=== PATIENT | male | born 1975 | race Two or more races ===

== ENCOUNTER 2025-04-04 07:45 | Emergency (ER) | payer BC ==
[2025-04-04] MEDS: Ketorolac 30 MG/ML SDV IVPUSH ONE (08:19)
[2025-04-04] MEDS: Ondansetron 4 MG/2 ML SDV IVPUSH ONE (08:19)
[2025-04-04] MEDS: Sodium Chloride 0.9% 10 ML Syringe FLUSH PRN (08:20)
[2025-04-04 08:44] LABS: BASOPHILS ABSOLUTE AUTO 0.1 K/mm3 (0.0-0.2); BASOPHILS PERCENT AUTO 0.8 % (0.0-1.0); EOSINOPHILS ABSOLUTE AUTO 0.3 K/mm3 (0.0-0.4); EOSINOPHILS PERCENT AUTO 2.3 % (0.0-6.0); IMMATURE GRAN ABSOLUTE AUTO 0.07 K/mm3 (0.00-0.05); IMMATURE GRAN PERCENT AUTO 0.6 % (0.0-0.4); LYMPHOCYTES ABSOLUTE AUTO 3.3 K/mm3 (1.0-4.8); LYMPHOCYTES PERCENT AUTO 27.1 % (24.0-44.0); MEAN PLATELET VOLUME 11.4 fl (9.4-12.4); MONOCYTES ABSOLUTE AUTO 0.9 K/mm3 (0.0-0.8); MONOCYTES PERCENT AUTO 7.2 % (0.0-8.0); NEUTROPHILS ABSOLUTE AUTO 7.6 K/mm3 (1.8-7.7); NEUTROPHILS PERCENT AUTO 62.0 % (41.0-71.0); NRBC ABSOLUTE 0.00 (0.00-0.02); NRBC PERCENT 0.0 % (0.0-0.2); PLATELET COUNT,PLT 234 K/mm3 (150-400); RED BLOOD CELL COUNT 5.42 M/mm3 (4.52-5.90); WHITE BLOOD CELL COUNT,WBC 12.19 K/mm3 (3.9-11.3)
[2025-04-04 09:06] LABS: A/G RATIO 1.4 (1-2); ALANINE AMINOTRANSFERASE,ALT 69.0 U/L (16-63); ASPARTATE AMNIOTRANSFERASE,AST 32.0 U/L (15-37); BILIRUBIN TOTAL 0.8 mg/dL (0.2-1.0); BLOOD UREA NITROGEN,BUN 14.0 mg/dL (7-18); CARBON DIOXIDE,CO2 25.0 mEq/L (21-32); CHLORIDE,CL 106.0 mEq/L (98-107); CREATININE 1.1 mg/dL (0.7-1.3); EST CRCL DRUG DOSING (CG) 83.02 mL/min; ESTIMATED GFR 83.0 mL/min (>60); GLUCOSE RANDOM 110.0 mg/dL (70-99); POTASSIUM,K 4.2 mEq/L (3.5-5.1); PROTEIN TOTAL,TP 7.0 g/dl (6.4-8.2); SODIUM,NA 140.0 mEq/L (136-145)
[2025-04-04 09:49] LABS: APPEARANCE,URINE CLEAR (Clear); GLUCOSE,URINE NEGATIVE (Negative); OCCULT BLOOD,URINE TRACE-INTACT (Negative)
[2025-04-04 10:05] LABS: EPITHELIAL CELLS,URINE 0-5 /hpf (0-5)
== END 2025-04-04 11:25 | disposition home or self-care (01) ==
LOC: JD.ED 07:45
DX: N13.2 Hydronephrosis with renal and ureteral calculous obstruction (principal)
CPT/HCPCS: 36415; 74176; 76775; 80053; 81001; 83690; 85025; 96361; 96374; 96375; 99284; J1885; J2405; J7030; J1171